=== PATIENT | female | born 1935 | race Caucasian/White ===

== ENCOUNTER 2021-12-30 15:38 | Emergency (ER) | payer MEDICARE, MEDICAID, SELFPAY ==
--- NOTE | ~2021-12-30 | CT_ITS ---
EXAMINATION: CT ABDOMEN AND PELVIS WITHOUT CONTRAST CLINICAL INFORMATION: fecal incontinence , cystocele . COMPARISON: No pertinent prior studies are available for comparison. TECHNIQUE: Multidetector volumetric imaging was performed from the superior aspect of the liver through the pubic symphysis without contrast per request. Sagittal and coronal reformatted images were obtained on the technologist workstation. This CT examination was performed using dose optimization techniques as appropriate, variously including the following: *Automated exposure control *Adjustment of mA and/or kV according to patient size (this includes techniques or standardized protocols for targeted exams where dose is matched to indication/reason for exam; i.e. extremities or head) *Use of iterative reconstruction technique DLP: 566 mGy-cm. FINDINGS: LUNG BASES: Minimal dependent atelectasis. LIVER, GALLBLADDER, BILIARY TREE: Coarsened calcifications seen within the right lobe the liver but no suspicious focal hepatic lesion or biliary ductal dilatation appreciated on this noncontrast study The gallbladder is unremarkable with no evidence of radiopaque gallstones, gallbladder wall thickening, or obvious pericholecystic inflammatory changes. PANCREAS: Unremarkable. SPLEEN: Unremarkable. ADRENAL GLANDS: Unremarkable. KIDNEYS AND URETERS: The kidneys are normal in size, shape, and attenuation. No hydronephrosis, hydroureter, or calculi seen. No perinephric stranding. BLADDER: Low-lying but otherwise unremarkable GASTROINTESTINAL TRACT: There is scattered colonic diverticulosis but no evidence for colonic wall thickening or pericolonic inflammatory changes. Visualized small bowel is unremarkable. No obstructive changes seen. Visualized rectum grossly unremarkable on this nonstressed study. ABDOMINAL WALL: No significant hernia is appreciated. LYMPHOVASCULAR STRUCTURES: Vascular calcification within the aorta iliac system. PELVIC VISCERA: Surgically absent OSSEUS STRUCTURES: Degenerative and chronic appearing changes in the spine CT/CT abdomen pelvis wo con IMPRESSION: Chronic appearing changes as described above. This is a noncontrast examination with low lying bladder noted. No obstructive changes to the bowel and no pericolonic inflammatory change seen. .
[2021-12-30 16:15] VITALS: BP 150/100; PULSE 82; O2SAT 97
[2021-12-30 16:16] VITALS: BP 152/91; PULSE 72; RESP 15; TEMP 36.6; O2SAT 96; BMI 28.8
--- NOTE | 2021-12-30 17:08 | ED.FEMALEGU ---
HPI - Female Genitourinary General Chief complaint: Urogenital-Female Stated complaint: Vaginal prolapse Time Seen by Provider: 12/30/21 16:18 Source: patient Mode of arrival: ambulatory Limitations: no limitations History of Present Illness HPI Narrative: Patient presents emergency department today for evaluation of a vaginal prolapse. She states that she 1st noticed this 2 weeks ago she was wiping and felt a small bulge. She was able to manually push this back in. Since then this occurs about 4-5 times daily were she has to manually push the bulge back into the vaginal canal. She states that she has been trying to avoid straining for bowel movements, increasing her fluid intake and drinking juice. She denies any pain with this, denies any bleeding, denies abnormal vaginal discharge, denies any feces coming from the vaginal canal, denies dysuria, urinary frequency. Denies urinary incontinence, however she does report that 2-3 days ago as well as today she had episodes of bowel incontinence, that she did not realize until she had went to the bathroom and noticed stool within undergarments. Reports a history of a complete hysterectomy in 1975 Related Data Allergies Allergy/AdvReac Type Severity Reaction Status Date / Time codeine Allergy Unknown Unknown Verified 12/30/21 17:06 Sulfa (Sulfonamide Allergy Unknown Unknown Verified 12/30/21 17:06 Antibiotics) Review of Systems Review of Systems: Constitutional: No weight loss. No fever. No chills. No weakness. No fatigue. Skin: No rash. No itching. Cardiovascular: No chest pain. No chest pressure. No palpitations. Respiratory: No shortness of breath. No cough. No sputum production. Gastrointestinal: No anorexia. No nausea. No vomiting. No diarrhea. No abdominal pain. No blood in stool. Positive bowel incontinence Genitourinary: No burning micturition. No urinary frequency. No incontinence. Neurologic: No headache. No dizziness. No pre-syncope/ syncope. No unilateral weakness. No ataxia. No numbness. No tingling. No change in bladder control, positive change in bowel control Musculoskeletal: No muscle pain. No back pain. No joint pain. No stiffness. Hematologic: No bleeding. No bruising. Lymphatics: No enlarged lymph nodes. Psychiatric:No depression. No anxiety. Endocrine: No polyuria. No polydipsia. Yes all other systems are reviewed and are negative [facility] Past Medical History Attestation statement: The following information was validated with the patient. Source: old records reviewed Social History Social History Advance Directives: No Advance Directives Information Provided: No Physical Exam Vital Signs: Vital Signs: Last Vital Signs Temp 98 F 12/30/21 16:16 Pulse 72 12/30/21 16:16 Resp 15 12/30/21 16:16 BP 152/91 H 12/30/21 16:16 Pulse Ox 96 12/30/21 16:16 O2 Del Method 12/30/21 16:16 BMI result Body Mass Index 28.8 Appearance: Alert.?Oriented to person, place and time. No acute distress.?Normal affect. Eyes: Pupils equal, round and reactive to light.? ENT: Pharynx normal.?? Neck: Normal inspection.? Neck supple.?? CVS: Heart sounds normal. Normal heart rate and rhythm.? Pulses normal.?? Respiratory: No respiratory distress.? Lung sounds clear to auscultation bilaterally?? Abdomen: Soft and non-tender. Normoactive bowel sounds. No pulsatile mass.? Normal rectal tone Genitourinary: Supervised by regulatory and compliance technician, upon first examination no visualization of Bulge within the vaginal canal, upon bearing down/straining, noted presence of prolapse moist pink tissue, nontender to palpation, easily manually reducible. Skin: Skin warm and dry.? Normal skin color.? Extremities: No lower extremity edema.? Neuro: Moves all extremities spontaneously. Sensation intact bilaterally. CN II-XII intact. No focal neuro deficits. Ambulates with normal steady gait. Course Course Course Narrative: Patient is an 86-year-old female with a past medical history of hypertension, hypothyroidism, status post elective total hysterectomy in 1975 who presents to the emergency department today for evaluation of vaginal canal prolapse. Physical exam with no acute concerns, no neurological deficits, no back pain, fevers, chills, immunosuppressant conditions, or history of cancer, rectal tone is normal, however patient does report new onset of bowel incontinence. Plan to obtain CBC, CMP, urinalysis, CT of the abdomen and pelvis. Reevaluation(s) Reevaluation #1: Patient signed out to ED Attending Dr. Hughes, pending results of serum labs, urinalysis, and CT scan. Suspect this is most likely to be cystocele, which will require outpatient follow-up. Time: 17:45 Discharge Plan Discharge Clinical Impression: Vaginal prolapse Patient Disposition: Still a Patient
[2021-12-30 18:37] LABS: MANUAL DIFF FLAG NO
[2021-12-30 18:38] LABS: Basophils Absolute Auto 0.1 X10*3/uL (0.0-0.2); Basophils Percent Auto 0.8 % (0-2); Eosinophils Absolute Auto 0.2 X10*3/uL (0.0-0.4); Eosinophils Percent Auto 3.7 % (0-4); Hematocrit 44.3 % (37.0-47.0); Hemoglobin 14.4 g/dl (12.0-16.0); Imm Gran Abs Auto 0.02 X10*3/uL (0.00-0.03); Imm Gran Pct Auto 0.3 % (0.0-0.4); Lymphocytes Percent Auto 31.2 % (20-40); Mean Corpuscular HGB Conc 32.5 g/dl (31.0-35.0); Mean Corpuscular Hemoglobin 30.3 pg (27.0-33.0); Mean Corpuscular Volume 93.1 fL (80.0-98.0); Mean Platelet Volume 9.5 fL (9.4-12.3); Monocytes Absolute Auto 0.7 X10*3/uL (0.1-1.2); Monocytes Percent Auto 10.2 % (2-11); Neutrophils Absolute Auto 3.5 x10*3/uL (2.0-8.3); Neutrophils Percent Auto 53.8 % (45-73); Platelet Count 202 X10*3/uL (160-400); Red Blood Count 4.76 X10*6/uL (4.20-5.50); White Blood Count 6.5 X10*3/uL (4.8-10.8)
[2021-12-30 18:39] LABS: Appearance Urine Clear; Color Urine Yellow; Glucose Urine UA Negative (Negative); Leukocyte Esterase Urine Large (3+) (Negative); Nitrite Urine Negative (Negative); Specific Gravity - Urine 1.015 (1.005-1.025); Urine Blood Negative (Negative); Urine Ketones Negative (Negative); Urine Protein Negative (Neg-Trace)
[2021-12-30 18:41] LABS: Bacteria Urine 4+ (None Seen); Hyaline Casts Urine 0-2 /LPF (0-2); RBC Urine 0-2 /HPF (0-2); Squamous Epithelial Cell Urine 0-2 /HPF (0-2); UACC Culture Trigger YES; WBC Urine >50 /HPF (0-5)
[2021-12-30 18:57] LABS: Alanine Aminotransferase 22 U/L (0-31); Albumin Level 4.4 g/dL (3.5-5.0); Alkaline Phosphatase 100 U/L (39-117); Anion Gap 12 (12-20); Aspartate Amino Transferase 32 U/L (5-31); Bilirubin Total 0.4 mg/dL (0.0-1.0); Blood Urea Nitrogen 28 mg/dL (9-16); Calcium 9.7 mg/dL (8.4-10.2); Carbon Dioxide 29 mmol/L (22-29); Chloride 108 mmol/L (96-108); Creatinine Clr Calc Pharmacy 37.4; Estimated Glomerular Filt Rate > 60; Glucose Random 88 mg/dL (60-115); Potassium 4.3 mmol/L (3.3-5.1); Sodium 145 mmol/L (135-145); Total Protein 7.3 g/dL (6.5-8.0)
[2021-12-30 19:23] VITALS: BP 169/84; PULSE 63; RESP 18; O2SAT 96
== END 2021-12-30 20:35 | disposition home or self-care (01) ==
PROVIDERS: Nurse Practitioner Family; Emergency Provider Internal Medicine; PCP Family Medicine
DX: N81.10 Cystocele, unspecified (principal); N81.6 Rectocele
CPT/HCPCS: 36415; 74176; 80053; 81001; 85025; 87086; 87088; 87186; 99283; 99284

== ENCOUNTER → 2022-03-05 11:41 | Outpatient (BNVA) | payer MEDICARE, MEDICAID, SELFPAY | PROVIDERS: PCP Family Medicine; Visit Provider Obstetrics & Gynecology | DX: N81.10 Cystocele, unspecified (principal) | CPT/HCPCS: 99202 ==

== ENCOUNTER → 2022-03-19 11:25 | Outpatient (BNVA) | payer MEDICARE, MEDICAID, SELFPAY | PROVIDERS: PCP Family Medicine; Visit Provider Obstetrics & Gynecology | DX: N81.10 Cystocele, unspecified (principal) | CPT/HCPCS: 57160; 99212 ==

== ENCOUNTER → 2022-03-20 11:21 | Outpatient (BNVA) | payer MEDICARE, MEDICAID, SELFPAY | PROVIDERS: PCP Family Medicine; Visit Provider Obstetrics & Gynecology | DX: Z46.89 Encounter for fitting and adjustment of other specified devices (principal) | CPT/HCPCS: 99212 ==

== ENCOUNTER → 2022-03-24 11:15 | Outpatient (BNVA) | payer MEDICARE, MEDICAID, SELFPAY | PROVIDERS: PCP Family Medicine; Visit Provider Obstetrics & Gynecology | DX: Z46.89 Encounter for fitting and adjustment of other specified devices (principal) | CPT/HCPCS: 99212 ==

== ENCOUNTER → 2022-03-31 11:22 | Outpatient (BNVA) | payer MEDICARE, MEDICAID, SELFPAY | PROVIDERS: PCP Family Medicine; Visit Provider Obstetrics & Gynecology | DX: Z46.89 Encounter for fitting and adjustment of other specified devices (principal) | CPT/HCPCS: 99212 ==

== ENCOUNTER → 2022-07-02 11:18 | Outpatient (BNVA) | payer MEDICARE, MEDICAID, SELFPAY | PROVIDERS: PCP Family Medicine; Visit Provider Obstetrics & Gynecology | DX: S30.814A Abrasion of vagina and vulva, initial encounter (principal) | CPT/HCPCS: 99212 ==